=== PATIENT | female | born 1950 | race Hispanic/Latino ===

== ENCOUNTER 2016-08-07 21:19 | Inpatient (IN) | payer MEDICARE, OTHER ==
--- NOTE | 2016-08-07 22:07 | ED PDOC ---
Arrival/HPI - General Chief Complaint: Shortness Of Breath Time Seen by Provider: 08/07/16 21:27 Historian: Patient, EMS - History of Present Illness Narrative History of Present Illness (Text): 08/07/16 21:50 Marcia Healy is a 66 year old female, whose past medical history includes COPD, CAD s/p cardiac catheterization, and NSTEMI, who presents to the emergency department brought in by EMS complaining of shortness of breath. Patient states she has been experiencing shortness of breath with associated productive cough tonight. Patient states she is on home oxygen and had nebulizer treatments at home but denies any relief. Patient denies any fever, chills, chest pain, nausea , vomiting, diarrhea, urinary symptoms, back pain, neck pain, headache, dizziness, or any other complaints. Time/Duration: Other (today) Symptom Onset: Gradual Symptom Course: Unchanged Activities at Onset: Rest, Light Context: Home Past Medical History - Provider Review Nursing Documentation Reviewed: Yes - Infectious Disease Hx of Infectious Diseases: None - Tetanus Immunization Tetanus Immunization: Unknown - Cardiac Hx Cardiac Disorders: Yes Hx Congestive Heart Failure: Yes - Pulmonary Hx Chronic Obstructive Pulmonary Disease (COPD): Yes - Neurological Hx Seizures: Yes (Is on LaMICtal) - HEENT Hx HEENT Disorder: No - Renal Hx Renal Disorder: No - Endocrine/Metabolic Hx Endocrine Disorders: No - Hematological/Oncological Hx Blood Disorders: No - Integumentary Hx Dermatological Disorder: No - Musculoskeletal/Rheumatological Hx Falls: No - Gastrointestinal Hx Gastrointestinal Disorders: No - Genitourinary/Gynecological Hx Reproductive Disorders: No - Psychiatric Hx Depression: Yes Hx Substance Use: No - Past Surgical History Past Surgical History: No Previous - Anesthesia Hx Anesthesia: No Hx Anesthesia Reactions: No Hx Malignant Hyperthermia: No - Suicidal Assessment Feels Threatened In Home Enviroment: No Family/Social History - Physician Review Nursing Documentation Reviewed: Yes Family/Social History: No Known Family HX Smoking Status: Heavy Smoker > 10 Cigarettes Daily Hx Alcohol Use: No Hx Substance Use: No Hx Substance Use Treatment: No Allergies/Home Meds Allergies/Adverse Reactions: Allergies No Known Allergies Allergy (Verified 08/05/14 16:18) Review of Systems - Physician Review All systems were reviewed & negative as marked: Yes - Review of Systems Constitutional: Normal. absent: Fevers Eyes: Normal ENT: Normal Respiratory: SOB, Cough, Sputum Cardiovascular: Normal. absent: Chest Pain Gastrointestinal: Normal. absent: Abdominal Pain, Diarrhea, Nausea, Vomiting Genitourinary Female: Normal. absent: Dysuria, Frequency, Hematuria, Urine Output Changes Musculoskeletal: Normal. absent: Back Pain, Neck Pain Skin: Normal. absent: Rash Neurological: Normal. absent: Headache, Dizziness Endocrine: Normal Hemo/Lymphatic: Normal Psychiatric: Normal Physical Exam Vital Signs Reviewed: Yes Vital Signs Temp Pulse Resp BP Pulse Ox 08/07/16 21:51 18 08/07/16 21:19 99.1 F 100 H 20 143/94 H 100 Temperature: Afebrile Blood Pressure: Normal Pulse: Regular Respiratory Rate: Normal Appearance: Positive for: Well-Appearing, Non-Toxic, Comfortable Pain Distress: None Mental Status: Positive for: Alert and Oriented X 3 - Systems Exam Head: Present: Atraumatic, Normocephalic Pupils: Present: PERRL Extroacular Muscles: Present: EOMI Conjunctiva: Present: Normal Mouth: Present: Moist Mucous Membranes Neck: Present: Normal Range of Motion Respiratory/Chest: Present: Decreased Breath Sounds (Decreased breath sounds bilaterally). No: Respiratory Distress, Accessory Muscle Use Cardiovascular: Present: Regular Rate and Rhythm, Normal S1, S2. No: Murmurs Abdomen: Present: Normal Bowel Sounds. No: Tenderness, Distention, Peritoneal Signs Back: Present: Normal Inspection Upper Extremity: Present: Normal Inspection. No: Cyanosis, Edema Lower Extremity: Present: Erythema (Erythema to left leg). No: Edema Neurological: Present: GCS=15, CN II-XII Intact, Speech Normal Skin: Present: Warm, Dry, Normal Color. No: Rashes Psychiatric: Present: Alert, Oriented x 3, Normal Insight, Normal Concentration Medical Decision Making ED Course and Treatment: 08/07/16 21:50 Impression: 66 year old female complaining of shortness of breath and productive cough today. Differential Diagnosis included but are not limited to: COPD exacerbation vs. pneumonia vs. CHF Plan: -- EKG -- Chest X-ray -- Labs, BNP, cardiac enzymes, blood culture -- Reassess and disposition Prior Visits: Notes and results from previous visits were reviewed. Progress Notes: Reviewed EKG, sinus tachycardia at 102 bpm. LAD. Incomplete RBBB. Non-specific T wave changes inferolaterally. 08/07/16 22:57 Reviewed radiology, Chest X-ray shows increased interstitial markings. 08/07/16 23:[address] House, who is aware and agrees with plan. Accepts pt in to his service. Pt will be admitted to Telemetry for COPD exacerbation. Pt is no acute distress. Discussed results and hospital admission with pt, who is aware and verbalizes understanding. - Lab Interpretations Lab Results: 08/07/16 21:47 08/07/16 21:47 Lab Results 08/07/16 21:47: WBC 7.7, RBC 5.44, Hgb 16.3 H, Hct 51.2 H, MCV 94.1, MCH 30.0, MCHC 31.8, RDW 18.7 H, Plt Count 325, MPV 9.5, PT 12.0 H, INR 1.11 H, APTT 26.3 , Sodium 139, Potassium 4.4, Chloride 97 L, Carbon Dioxide 37 H, Anion Gap 9 L, BUN 34 H, Creatinine 0.7, Est GFR ( Amer) > 60, Est GFR (Non-Af Amer) > 60, Random Glucose 115 H, Calcium 8.2 L, Total Bilirubin 0.8, AST 30, ALT 38, Alkaline Phosphatase 117, Lactate Dehydrogenase 572, Total Creatine Kinase 86, Troponin I < 0.01 D, NT-Pro-B Natriuret Pep 6850 H, Total Protein 6.8, Albumin 3.3, Globulin 3.5, Albumin/Globulin Ratio 0.9 L I have reviewed the lab results: Yes - RAD Interpretation Radiology Orders: 08/07/16 21:51 CHEST PORTABLE [RAD] Stat [employer] Saw Operator: ED Physician - EKG Interpretation Interpreted by ED Physician: Yes Type: 12 lead EKG - Medication Orders Current Medication Orders: Azithromycin (Zithromax 500mg In Ns) 250 mls @ 166.667 mls/hr IV STAT STA PRN Reason: Protocol Stop: 08/08/16 00:30 Ceftriaxone Sodium (Rocephin 1 Gram Ivpb) 100 mls @ 200 mls/hr IV ONCE STA PRN Reason: Protocol Stop: 08/07/16 23:30 Discontinued Medications Albuterol/Ipratropium (Duoneb 3 Mg/0.5 Mg (3 Ml) Ud) 3 ml IH ONCE STA Stop: 08/07/16 23:01 Methylprednisolone (Solu-Medrol) 125 mg IVP STAT STA Stop: 08/07/16 22:06 Last Admin: 08/07/16 22:06 Dose: 125 MG IVP Administration Document 08/07/16 22:06 DALLIN (Rec: 08/07/16 22:06 DALLIN [id number]) Charges for Administration # of IVP Administrations 1 - Scribe Statement The provider has reviewed the documentation as recorded by the Lamar Felix Provider Attestation: All medical record entries made by the Johnibcristi were at my direction and personally dictated by me. I have reviewed the chart and agree that the record accurately reflects my personal performance of the history, physical exam, medical decision making, and the department course for this patient. I have also personally directed, reviewed, and agree with the discharge instructions and disposition. Disposition/Present on Arrival - Present on Arrival Any Indicators Present on Arrival: No History of DVT/PE: No History of Uncontrolled Diabetes: No Urinary Catheter: No History of Decub. Ulcer: No History Surgical Site Infection Following: None - Disposition Have Diagnosis and Disposition been Completed?: Yes Diagnosis: Acute exacerbation of chronic obstructive pulmonary disease (COPD) Disposition: HOSPITALIZED Disposition Time: 23:18 Condition: GOOD
[2016-08-07 22:09] LABS: HEMATOCRIT 51.2 % (36.0-48.0); MEAN CELL VOLUME 94.1 fL (80.0-105.0); MEAN CORPUSCULAR HGB CONC 31.8 g/dl (31.0-37.0); MEAN PLATELET VOLUME 9.5 fl (7.0-11.0); RED CELL DISTRIBUTION WIDTH 18.7 % (11.5-14.5); WHITE BLOOD COUNT 7.7 10^3/ul (4.5-11.0)
[2016-08-07 22:22] LABS: ALB/GLOB RATIO 0.9 (1.1-1.8); ALKALINE PHOSPHATASE 117 U/L (38-133); ALT/SGPT 38 U/L (7-56); AST/SGOT 30 U/L (15-39); BILIRUBIN,TOTAL 0.8 mg/dL (0.2-1.3); BLOOD UREA NITROGEN 34 mg/dL (7-21); CALCIUM 8.2 mg/dL (8.4-10.5); CARBON DIOXIDE 37 mmol/L (21-33); CHLORIDE 97 mmol/L (98-107); GFR AFRICAN-AMERICAN > 60; GLUCOSE,RANDOM 115 mg/dL (70-110); INR 1.11 (0.93-1.08); PARTIAL THROMBOPLASTIN TIME 26.3 Seconds (23.7-30.8); POTASSIUM 4.4 mmol/L (3.6-5.0); SODIUM 139 mmol/L (132-148); TOTAL PROTEIN 6.8 g/dL (5.8-8.3)
[2016-08-07 22:34] LABS: TROPONIN I < 0.01 ng/mL
[2016-08-07] MEDS ORDERED: Albuterol-Ipratrop 3 mg / 0.5 (3 ml) UD IH STA (23:00)
[2016-08-07] MEDS ORDERED: cefTRIAXone 1 gm 100 ML IV STA (23:01)
[2016-08-07] MEDS ORDERED: Azithromycin 500MG/NS 250ml 250 ML IV STA (23:01)
--- NOTE | 2016-08-08 00:49 | CP.PCM.PN ---
Subjective - Date & Time of Evaluation Date of Evaluation: 08/08/16 Time of Evaluation: 00:41 - Subjective Subjective: Patient was seen for lethargy. States that she in in [facility] and this is August. Has no complaints. Medical record was reviewed. 66 year old white woman was admitted for sob, exacerbation of COPD. Has PMH of CAD, NSTEMI, CHF, COPD,seizure, HLD, polycythemiak ,depression. Obtained blood for ABG from right inguinal region. Objective - Vital Signs/Intake and Output Vital Signs (last 24 hours): Temp Pulse Resp BP Pulse Ox 99.1 F 100 H 18 151/97 H 99 08/07/16 21:19 08/07/16 23:53 08/07/16 23:53 08/07/16 23:53 08/07/16 23:53 130/97,97, 98.8 *F FSBS 154 mg%. - Labs Labs: PT 12.0 Seconds (9.9-11.8) H 08/07/16 21:47 INR 1.11 (0.93-1.08) H 08/07/16 21:47 APTT 26.3 Seconds (23.7-30.8) 08/07/16 21:47 - Constitutional Appears: No Acute Distress - Head Exam Head Exam: ATRAUMATIC, NORMAL INSPECTION, NORMOCEPHALIC - Eye Exam Eye Exam: Normal appearance Additional comments: Reactive light. - ENT Exam ENT Exam: Normal External Ear Exam - Neck Exam Neck Exam: Normal Inspection. absent: Thyromegaly - Respiratory Exam Respiratory Exam: Wheezes (+), NORMAL BREATHING PATTERN - Cardiovascular Exam Cardiovascular Exam: REGULAR RHYTHM, +S1 (Normal.), +S2 (Normal.). absent: JVD - GI/Abdominal Exam GI & Abdominal Exam: absent: Distended - Rectal Exam Rectal Exam: Deferred - Extremities Exam Extremities Exam: Normal Inspection - Back Exam Back Exam: NORMAL INSPECTION - Neurological Exam Neurological Exam: Altered (Lethargic.) Neuro motor strength exam: Left Upper Extremity: 3, Right Upper Extremity: 3, Left Lower Extremity: 3, Right Lower Extremity: 3 - Psychiatric Exam Psychiatric exam: Normal Mood - Skin Skin Exam: Normal Color Assessment and Plan - Assessment and Plan (Free Text) Assessment: A/P:Lethargy. Exacerbation of COPD. R/O hypercarbia. CHF.-->hypoxia. CAD. Seizure ,Post ictal? ABG stat. Lasix 80 mg iV stat. FSBS-154 mg% 1 st ABG-Venous? It was repeated. Repeat ABG shows respiratory acidosis with hypoxia. Will place patient on BiPAP and repeat ABG. Placed a through to 's service. 06:18 ABG was noted .BiPAP setting changed.
[2016-08-08 01:09] VITALS: BMI 25.7
[2016-08-08 01:34] LABS: ARTERIAL BLOOD GAS HCO3 30.2 mmol/L (21-28)
[2016-08-08 01:42] LABS: ARTERIAL BLOOD GAS PH 7.19 (7.35-7.45)
[2016-08-08 04:54] LABS: ARTERIAL BLOOD GAS HCO3 35.4 mmol/L (21-28); ARTERIAL BLOOD GAS O2 CAPACITY 19.4 mL/dl (16-24); ARTERIAL BLOOD GAS O2 CONTENT 19.2 ML/dl (15-23); ARTERIAL BLOOD GAS PH 7.27 (7.35-7.45); CARBOXYHEMOGLOBIN 14.7 % (0.5-1.5); HHB 0.8 % (0-5); METHEMOGLOBIN 0.5 % (0.0-3.0)
--- NOTE | 2016-08-08 09:36 | HP ---
CHIEF COMPLAINT AND HISTORY OF PRESENT ILLNESS: This is a 66-year-old female who came in to see me y day because of having lower extremity swelling. The patient states that her lower extremity swe lling has progressively increased. She also was complaining of worsening shortness of breath with ex ertion. The patient was advised to go to the Emergency Room. She had a friend who was going to [place]. She says this fiend also is picking her up, and so EMS was not called for transfer. She was comfortable, not in any distress. She has delayed coming into the hospital. She has complaints of s hortness of breath. Overnight she was lethargic, she was hypoxic. She was placed on oxygen. She was given IV Lasix. Emily colin has been placed on BiPAP. She had not complained of any chest pain. She denies any nausea or vomi ting. No dysuria or frequency. Mostly it is her lower extremity edema that she complains about. Emily colin has no headaches. She denies any weakness in the arms or the legs. She does have difficulty ambul ating, and this has also been an issue for her recently. The patient has been brought by EMS franklyn lee of shortness of breath. She has been using her nebulizers, with not much help. ALLERGIES: No known drug allergies. HOME MEDICATIONS: She is on oxycodone, aspirin, Lipitor. PAST MEDICAL HISTORY: 1. Coronary artery disease. 2. COPD. 3. Seizure disorder. 4. Depression. SOCIAL HISTORY: She has been a smoker, and smokes 10 cigarettes a day. She denies substance abuse. FAMILY HISTORY: Noncontributory. Temperature is 98, pulse 97. The blood pressure is 136/97, O2 saturation 99%. Height is 5 feet 2 in ches, weight is 141 pounds, BMI is 25.8. GENERAL: Patient lying in bed, flat, and in no apparent distress. HEAD AND NECK EXAM: Atraumatic, normocephalic. Conjunctivae are pink. Throat clear and mouth with moist mucosa. Oropharynx benign. EYES: Extraocular movements are intact. PERRLA. NECK: Supple. No JVD, thyromegaly, or adenopathy. No bruits. HEART: S1 and S2 regular rate and rhythm. No murmurs, rubs, or gallops. LUNGS: Good bilateral air entry. There is rhonchi bilaterally. No wheezing or rales. ABDOMEN: Soft, nontender, nondistended. Bowel sounds are positive in all quadrants. No rebound. No hepatosplenomegaly. EXTREMITIES: In the lower extremities there is 2+ edema going up to the knees. NEURO: No facial asymmetry, tongue is midline, no uvula deviation. Power is 5/5 in upper extremity and 5/5 in lower extremity. Sensation is normal in upper extremity and lower extremity. PSYCH: Awake, alert, oriented x3. No anxiety or depression symptoms. Good insight. Normal affec t. : No CVA tenderness VASCULAR: 2+ pulses in carotid and pedal pulses. SKIN: No erythema or abnormal nodules noted. SPINE: Normal curvature. LYMPHADENOPATHY: No anterior cervical or posterior cervical adenopathy. No inguinal adenopathy. LABORATORIES: She has a white count of 7.7, hemoglobin 16.3, platelet count is 325. INR is 1.1. Emily colin has an ABG that shows a pH of 7.19 with a pCO2 of 79. She had a bicarbonate of 37 with an anion ga p of 9. She had a sodium 139. AST, ALT is 30 and 38. Albumin is 33.3 EKG shows sinus tachycardia at 102. There are nonspecific ST changes, left axis deviation. Chest x- ray shows possibly some bilateral pulmonary congestion. ProBNP 6850 and troponin 0.01. ASSESSMENT: 1. Acute congestive heart failure secondary to systolic dysfunction with an ejection fraction of 45-5 0%. 2. Moderate right ventricular dilation. 3. Tricuspid regurgitation. 4. Lower extremity edema. 5. Polycythemia. 6. Nonobstructive coronary artery disease. 7. Anxiety. 8. Dyslipidemia. PLAN: The patient is going to be admitted to the hospital. I will give her IV diuretic therapy. Emily colin received steroids in the Emergency Room. She is going to be placed on nebulizer treatments. She i s getting Lasix. She was given Rocephin and Zithromax antibiotics. I do not see any signs of infect ion. I will get pulmonary and cardiology evaluation as well. Will need to repeat her blood work. Overall prognosis is guarded. She will also need physical therapy. I will also order a urine tox. Mariusz House MD cc: [id number] TT: 08/08/2016 09:36:02 jn
[2016-08-08] MEDS ORDERED: MethylPREDNISolone 40 mg Vial IVP SCH (10:00)
[2016-08-08] MEDS: Albuterol-Ipratrop 3 mg / 0.5 (3 ml) UD IH SCH ×3 (10:20→19:32)
--- NOTE | 2016-08-08 11:01 | RAD ---
HISTORY: Shortness of breath. COMPARISON: 04/21/2016. FINDINGS: LUNGS: No discrete infiltrates. PLEURA: No significant pleural effusion identified, no pneumothorax apparent. CARDIOVASCULAR: Cardiomegaly, stable pulmonary vascular congestion. OSSEOUS STRUCTURES: No significant abnormalities. VISUALIZED UPPER ABDOMEN: Normal. OTHER FINDINGS: None. IMPRESSION: Cardiomegaly/ stable CHF.
[2016-08-08 12:43] LABS: URINE BILIRUBIN NEGATIVE (NEGATIVE); URINE BLOOD TRACE-INTACT (NEGATIVE); URINE GLUCOSE (UA) NEGATIVE (NEGATIVE); URINE KETONE NEGATIVE (NEGATIVE); URINE LEUKOCYTE ESTERASE SMALL Leu/uL (NEGATIVE); URINE PROTEIN NEGATIVE mg/dL (<30 mg/dL); URINE UROBILINOGEN 0.2 E.U./dL (<1 E.U./dL)
[2016-08-08 12:47] LABS: URINE APPEARANCE CLEAR (CLEAR); URINE COLOR YELLOW (YELLOW)
[2016-08-08 13:14] LABS: URINE RBC 0 - 2 /hpf (0-2)
--- NOTE | 2016-08-08 18:05 | CARD ---
APPROVED REPORT EKG Measurement Heart [id number] <Conclusion> Sinus tachycardia Left axis deviation Pulmonary disease pattern Incomplete right bundle branch block T wave abnormality, consider inferolateral ischemia Abnormal ECG
--- NOTE | 2016-08-08 22:19 | CON ---
DATE: 08/08/2016 REFERRING PHYSICIAN: Dr. Mariusz House. REASON FOR CONSULT: Cough, shortness of breath, history of chronic obstructive lung disease. HISTORY OF PRESENT ILLNESS: This is a 66-year-old female with known history of chronic obstructive l modesta disease, coronary artery disease, cardiomyopathy, seizure disorder, depression, who had been acti vely smoking since last week. Presented into Emergency Room with shortness of breath, cough, leg swe lling, respiratory failure requiring noninvasive ventilation. Still having shortness of breath, coug h. No hemoptysis, no hematemesis. No hematuria, no diarrhea reported. PAST MEDICAL HISTORY: Chronic obstructive lung disease, coronary artery disease, seizure disorder, d epression. ALLERGIES: None known. SOCIAL HISTORY: Active smoking. Denied any alcohol use. FAMILY HISTORY: No significant cardiopulmonary disease reported. MEDICATIONS: She is on Coreg 3.125 mg twice a day, DuoNeb q. 6 hours, Lasix 40 mg twice a day, Solu- Medrol 40 mg q. 12 hours, Zestril 2.5 mg daily. REVIEW OF SYSTEMS: No headache. Has rhinitis, facial discomfort, cough, shortness of breath, discol ored sputum production. No nausea, no vomiting, no abdominal pain. No dysuria. Did have leg swelli ng. PHYSICAL EXAMINATION: Lying in the bed, [id number] distress secondary to cough and shortness of breath. Temp is 99, heart rate 96, respiratory rate is 20, blood pressure 105/67, pulse ox 95% on BiPAP with 40% oxygen. HENT: Moist mucous membrane. Crowded airway. Bilateral maxillary tenderness. NECK: Supple, no JVD. LUNGS: Has bilateral expiratory wheezing, few basilar crackles. HEART: S1 and S2. ABDOMEN: Soft, nontender, no organomegaly. EXTREMITIES: There is no edema. NEUROLOGICALLY: Awake, alert. Follows simple commands. LABORATORY DATA: Shows hemoglobin 16.3, hematocrit 51.2, WBC 7.7, platelet is 325. INR 1.11, PTT 26 . ABG shows pH 7.27, pCO2 of 77, O2 was 104 this morning. Sodium 139, potassium 4.4, chloride 97, b icarbonate 37, BUN 34, creatinine 0.7, glucose 154, calcium 8.2. AST 30, ALT 38. Alk phos is 107, L DH 572. Troponin is 0.01. ProBNP 6,850, albumin is 3.3. Chest x-ray done today shows cardiomegaly; also shows some congestion. Had CAT scan done last year w [facility] showed bilateral effusion; otherwise was unremarkable. Also had a cardiac cath done last year w [facility] shows LV ejection fraction of 55% with known obstructive coronary artery disease. Echocardiogra m in 02/2016 shows right ventricular systolic pressure is 29, LV ejection fraction was 45-50%. IMPRESSION AND PLAN: Exacerbation of chronic obstructive lung disease. There may be component of si nusitis. According to echo, left ventricular function 45-50%. There may be component of sleep apnea syndrome. Seizure disorder. I agree with Dr. House with the present management. I will suggest adding doxycycline 100 mg twic e a day, add with Pulmicort and Mucomyst q. 12 hours, Singulair 10 mg daily, Daliresp 500 mcg d aily. Gastric prophylaxis. DVT prophylaxis. Will place the patient on Nicoderm patch. Continue Bi PAP while sleeping, and if short of breath. Follow up labs in the morning. Thank you, and will follow with you. Emeka Acuna MD cc: [id number] TT: 08/08/2016 22:19:16 Confirmation # [id number] Dictation # [id number] carmela
[2016-08-08] MEDS: Hemorrohoidal Ointment (2 oz) TOP SCH (23:27)
[2016-08-08] MEDS: MethylPREDNISolone 40 mg Vial IVP SCH (23:27)
--- NOTE | 2016-08-09 00:28 | CON ---
DATE: 08/08/2016 REQUESTING PHYSICIAN: Dr. Mariusz House. REASON FOR CONSULTATION: Polycythemia, shortness of breath. HISTORY OF PRESENT ILLNESS: The patient is a 66-year-old female who presented to the ED with shortne ss, lethargy. She also had productive cough. She has chronic obstructive pulmonary disease with a h istory of heavy smoking. She had multiple admissions related to this. She was also found to have po lycythemia during last hospitalization. Injected mutation was negative. Hemoglobin and hematocrit du ring this admission is elevated to 16.3 and 51.2. She also has history of congestive heart failure w ith acute exacerbation now. She also developed swelling of the lower extremity for the past few days . She required phlebotomy 1 unit during last hospitalization due to elevated hemoglobin and hematocr it. She also has a history of seizure disorder. No recent seizures noted. Also has history of depr ession. No history of substance abuse. Urine tox was negative. Shortness of breath has improved si nce admission to the hospital. Denies any chest pain. PAST MEDICAL HISTORY: COPD, CHF, seizure disorder, depression. PAST SURGICAL HISTORY: None. FAMILY HISTORY: No positive history in mother and father. PERSONAL HISTORY: Heavy smoker, smokes more than 10 cigarettes a day. No history of alcohol abuse. ALLERGIES: No known drug allergies. REVIEW OF SYSTEMS: As per HPI. Rest of 12-point review of systems reviewed and negative. PHYSICAL EXAMINATION: GENERAL: Comfortable in bed, in no acute distress. VITAL SIGNS: Temperature 99.1, heart rate is 100 per minute, respiratory rate 20 per minute, blood p ressure 140/90, pulse ox is 100% on oxygen by nasal cannula. HEENT: Normal. CARDIOVASCULAR: Tachycardia present. S1, S2 normal. No murmur, no gallop. RESPIRATORY: Air entry present, equal bilateral. Occasional crepitations at bases. Occasional rhon chi. SKIN: Normal. No rash. EXTREMITIES: No edema. LYMPHADENOPATHY: None. NEUROLOGIC: Awake, alert, oriented. No focal sensory or motor deficit. LABORATORY DATA: White count 7.7, hemoglobin 16.3, hematocrit 51.2, platelet count 325. Sodium 139, potassium 4.4, BUN 34, creatinine 0.7, glucose 115. INR 1.1, PT 12, PTT 26. glucose 115, calcium 8 .2. BNP 6800. Chest x-ray: No infiltrate, cardiomegaly. ASSESSMENT: 1. Chronic obstructive pulmonary disease, acute exacerbation. 2. Congestive heart failure. 3. Polycythemia - secondary. 4. Seizure disorder. 5. Depression. 6. Tricuspid regurgitation. PLAN: 1. Polycythemia. Hemoglobin and hematocrit elevated to 16.3 and hematocrit 51.2. We will repeat the CBC with a.m. labs tomorrow, elevated hemoglobin and hematocrit can give rise to symptoms of dizzines s and drowsiness. If she is still symptomatic, we will consider 1 unit of phlebotomy if hematocrit i s still elevated more than 50. She has secondary polycythemia secondary to smoking and COPD, hypoxia . JAK2 mutation has been negative. 2. Pulmonary: She is currently on oxygen by nasal cannula, bronchodilators and antibiotic with doxyc ycline. She is also on Solu-Medrol. 3. Renal: BUN, creatinine normal. 4. Neurology: No focal sensory or motor deficit. Alert, oriented. 5. Seizure disorder, none recent. Thank you, Dr. House, for allowing us to participate in the patient's care. We will continue to david miller. Kacey Tirado MD cc: [id number] TT: 08/09/2016 00:28:01 Confirmation # [id number] Dictation # [id number] carmela
--- NOTE | 2016-08-09 03:36 | CP.PCM.PN ---
Subjective - Date & Time of Evaluation Date of Evaluation: 08/09/16 Time of Evaluation: 03:32 (Seen earlier.) - Subjective Subjective: S:Patient was seen at bedside. Complained of pain in rectal area, requested hemorrhoid cream. States that she has hemorrhoids for many years, began after she delivered son. Has no other complaints now. Pertinent medical record was reviewed. O: Last Vital Signs 3 Temp 98.3 F 08/09/16 00:01 Pulse 92 H 08/09/16 02:00 Resp 16 08/09/16 00:01 BP 103/67 08/09/16 00:01 Pulse Ox 95 08/08/16 08:00 Awake, alert, not in distress. LUNGS: Normal breathing pattern. ABD:No distension. A:History of hemorrhoid. P:Prep H as ordered. Objective - Vital Signs/Intake and Output Vital Signs (last 24 hours): Temp Pulse Resp BP Pulse Ox 98.3 F 92 H 16 103/67 95 08/09/16 00:01 08/09/16 02:00 08/09/16 00:01 08/09/16 00:01 08/08/16 08:00 Intake and Output: 08/08/16 08/09/16 18:59 06:59 Output Total 850 Balance -850 - Medications Medications: Current Medications Albuterol/Ipratropium (Duoneb 3 Mg/0.5 Mg (3 Ml) Ud) 3 ml IH TIDRESP PRN PRN Reason: Shortness of Breath Arformoterol Tartrate (Brovana) 15 mcg IH [id number] [facility] Budesonide (Pulmicort Respules) 0.5 mg IH [id number] [facility] Carvedilol (Coreg) 3.125 mg PO BID [facility] Last Admin: 08/08/16 17:58 Dose: 3.125 mg Doxycycline Hyclate (Doryx) 100 mg PO Q12 [facility] PRN Reason: Protocol Last Admin: 08/08/16 23:29 Dose: 100 mg Furosemide (Lasix) 40 mg IVP BID [facility] Last Admin: 08/08/16 17:59 Dose: 40 mg Lisinopril (Zestril) 2.5 mg PO DAILY [facility] Methylprednisolone (Solu-Medrol) 40 mg IVP Q8 [facility] Last Admin: 08/08/16 23:27 Dose: 40 mg Montelukast Sodium (Singulair) 10 mg PO HS [facility] Last Admin: 08/08/16 23:27 Dose: 10 mg Multi-Ingredient Ointment (Prep-Hem) 1 ea TOP BID [facility] Last Admin: 08/08/16 23:27 Dose: 1 applic Roflumilast (Daliresp) 500 mcg PO DAILY [facility] - Labs Labs: PT 12.0 Seconds (9.9-11.8) H 08/07/16 21:47 INR 1.11 (0.93-1.08) H 08/07/16 21:47 APTT 26.3 Seconds (23.7-30.8) 08/07/16 21:47
[2016-08-09] MEDS: MethylPREDNISolone 40 mg Vial IVP SCH ×3 (06:51→22:36)
--- NOTE | 2016-08-09 07:27 | CON ---
DATE: 08/08/2016 SERVICE: Cardiology. REASON FOR CONSULTATION: Cardiac evaluation, admitted with shortness of breath, possible acute exace rbation of chronic obstructive pulmonary disease, status post cardiac catheterization, nonobstructive coronary artery disease, hypertension. BRIEF CLINICAL HISTORY: A 66-year-old female with a past medical history significant for COPD, admit fabby with acute exacerbation of chronic obstructive pulmonary disease, history of cardiac catheterizat ion, nonobstructive coronary artery disease ____ 10/20/2015. The patient says that she has swelling o f the lower extremity as well as progressive increasing shortness of breath. The patient was advised to go to the Emergency Room by PMD. A friend drove and admitted here. The patient overnight was le thargic, hypoxic, placed and oxygen, was given IV Lasix. Now placed on BiPAP. Denies any chest pain , shortness of breath, any palpitation. PAST MEDICAL HISTORY: Significant for COPD, pulmonary hypertension, depression, anxiety disorder, re spiratory tract infection. Previous cardiac workup as follows: The patient had a stress test on 08/10/2014 that shows probably abn ormal SPECT myocardial perfusion study, partially reversible anteroseptal defect suspicious for ische markell dated 08/10/2014. Following this, patient underwent cardiac catheterization dated 08/12/2014 that s hows essentially nonobstructive coronary artery disease, limited to diagonal 1, 50%-55% stenosis, von rpin turn, small caliber vessels, preserved ____ ejection fraction ____ EDP was 12, essentially carol l LAD, circumflex, and right coronary artery, dated 08/12/2014. The patient had repeat catheterizatio n on 02/19/2016, at that time showed nonobstructive coronary artery disease, limited to OM1 55%, smal l caliber vessel, preserved ____ ejection fraction ____%, EDP was in the range of 12. The patient vaughn d echocardiography done on 02/17/2016 that showed ejection fraction 45%-50%, right ventricle is moder ate to severely dilated, systolic function of RV is moderately reduced, RV systolic pressure 29. No pericardial effusion, no vegetation. SOCIAL HISTORY: Has been a smoker, now cut down to 10 cigarettes a day. Denies any substance abuse. FAMILY HISTORY: Noncontributory. CURRENT MEDICATIONS: The patient is taking prednisone, Lamictal, dextromethorphan, Robitussin, Zolof t, BuSpar, Lovenox, Pepcid, and multiple nebulizers. ALLERGIES: No known drug allergies. REVIEW OF SYSTEMS: As per HPI. PHYSICAL EXAMINATION: VITAL SIGNS: Temperature afebrile, heart rate 87, blood pressure 112/77. HEENT: PERRLA. Extraocular muscles intact. NECK: Supple. No carotid bruits. No thyromegaly. CHEST: Clear to auscultation. HEART: S1, S2 regular. ABDOMEN: Soft. EXTREMITIES: Clubbing and cyanosis negative. LABORATORY DATA: Blood workup as follows: WBC ____, hemoglobin ____, hematocrit 51.2, platelet coun t 325. Chemistry shows sodium ____, potassium 4.0, chloride 97, carbon dioxide 37, anion gap of 9, B UN ____, creatinine 0.7. BNP 6850. Troponin 0.01 x 2 negative. 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 Prior to that, patient had cardiac catheterization and nonobstructive coronary artery disease. Echo shows ejection fraction 45% dated 02/17/20 16, acute exacerbation of chronic obstructive pulmonary disease, hypertension, hyperlipidemia, dilate d right ventricle, right ventricular dysfunction, obstructive sleep apnea possibly, as well as chroni c obstructive pulmonary disease. Aggressive treatment of chronic obstructive pulmonary disease. RECOMMENDATION: Continue diuretics. Monitor electrolytes. We will follow with you. Thank you, Dr. House, for providing the opportunity in taking care of the patient. We will follow with you. Continue DVT prophylaxis. Emeka Alfaro MD cc: [id number] TT: 08/08/2016 19:43:45 Confirmation # [id number] Dictation # [id number] puneet
[2016-08-09 07:31] LABS: HEMATOCRIT 50.1 % (36.0-48.0); MEAN CELL VOLUME 95.2 fL (80.0-105.0); MEAN CORPUSCULAR HEMOGLOBIN 29.1 pg (25.0-35.0); MEAN CORPUSCULAR HGB CONC 30.5 g/dl (31.0-37.0); MEAN PLATELET VOLUME 9.6 fl (7.0-11.0); RED CELL DISTRIBUTION WIDTH 18.3 % (11.5-14.5); WHITE BLOOD COUNT 8.7 10^3/ul (4.5-11.0)
[2016-08-09 07:47] LABS: ALB/GLOB RATIO 0.9 (1.1-1.8); ALKALINE PHOSPHATASE 99 U/L (38-133); ALT/SGPT 47 U/L (7-56); AST/SGOT 28 U/L (15-39); BILIRUBIN,TOTAL 0.8 mg/dL (0.2-1.3); BLOOD UREA NITROGEN 32 mg/dL (7-21); CALCIUM 8.4 mg/dL (8.4-10.5); CHLORIDE 91 mmol/L (98-107); CHOLESTEROL 134 mg/dL (130-200); GFR AFRICAN-AMERICAN > 60; GLUCOSE,RANDOM 115 mg/dL (70-110); MAGNESIUM 2.1 mg/dL (1.7-2.2); PHOSPHOROUS 3.6 mg/dL (2.5-4.5); POTASSIUM 4.4 mmol/L (3.6-5.0); SODIUM 139 mmol/L (132-148)
[2016-08-09 08:00] LABS: CARBON DIOXIDE 43 mmol/L (21-33)
[2016-08-09] MEDS: Budesonide 0.5 mg/2 ml Inhal Susp UD IH SCH ×2 (08:03→21:00)
[2016-08-09] MEDS: Arformoterol 15 mcg/2 ml Inh Sol IH SCH ×2 (08:03→21:00)
--- NOTE | 2016-08-09 09:00 | PN ---
DATE: 08/09/2016 The patient has no complaints of any chest pain or shortness of breath. She says her breathing is be tter. Temperature is 98.3, pulse of 92, blood pressure is 103/67, respirations 16. PHYSICAL EXAMINATION: GENERAL: The patient comfortable, in no acute distress. HEENT: Anicteric sclerae. Moist mucosa. NECK: No JVD or adenopathy. CARDIAC: S1/S2. No murmurs. No rubs. Regular. RESPIRATORY: Clear to auscultation bilaterally. No wheezes, rales, or rhonchi. Good air entry. ABDOMEN: Bowel sounds are positive, soft, nontender, and nondistended. EXTREMITIES: Lower extremity 1+ edema. Has 1+ pulses. 1. Acute congestive heart failure secondary to systolic dysfunction with an EF of 45-50%. 2. Acute chronic obstructive pulmonary disease. 3. Tricuspid regurgitation. 4. Lower extremity edema, improving. 5. Polycythemia. 6. Nonobstructive coronary artery disease. 7. Chronic back pain. 8. Anxiety. 9. Dyslipidemia. 10. Hemorrhoids. PLAN: The patient is currently comfortable. The patient is on carvedilol. She is on doxycycline by Dr. Acuna. The patient is on nebulizer treatments. She is receiving Lasix twice a day. He has be en given hemorrhoidal cream. She is on steroids with methylprednisolone. She is on lisinopril for h ypertension. She is about to be coming off of telemetry. The patient also had physical therapy eval uation done. Because the patient was on BiPAP was not fully executed. Will await further inpu t from physical therapy regarding the patient's ability to ambulate. Mariusz House MD cc: [id number] TT: 08/09/2016 08:59:48 Confirmation # [id number] Dictation # [id number] carmela
[2016-08-09] MEDS: Hemorrohoidal Ointment (2 oz) TOP SCH ×2 (09:58→18:40)
[2016-08-09] MEDS: guaiFENesin DM 200 mg-20 mg/10 ml UD PO SCH ×3 (09:58→18:39)
--- NOTE | 2016-08-09 10:05 | PN ---
DATE: 08/09/2016 REASON FOR CONSULTATION AND FOLLOWUP: Cardiac evaluation, shortness of breath, possible acute exacer bation of COPD, status post cardiac catheterization, nonobstructive coronary artery disease, hyperten gi. 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 Denies any aneesh st pain. Complained of shortness of breath. PHYSICAL EXAMINATION: VITAL SIGNS: Temperature afebrile, heart rate 82, blood pressure 103/67. HEENT: PERRLA. Extraocular muscles intact. NECK: Supple. No carotid bruits. No thyromegaly. CHEST: Clear to auscultation. HEART: S1, S2 regular. ABDOMEN: Soft. EXTREMITIES: Clubbing and cyanosis negative. LABORATORY DATA: Blood workup as follows: WBC 8.7, hemoglobin 15.3, hematocrit 50.1, platelet count 252. Chemistry shows sodium 130, potassium 4.0, chloride 91, carbon dioxide 43, anion gap of 9, BUN 32, creatinine 0.7. BNP 3880. IMPRESSION: Acute exacerbation of chronic obstructive pulmonary disease, hypertension, fluid overloa d, congestive heart failure, status post cardiac catheterization 10/19/____, nonobstructive coronary artery disease. End-diastolic pressure was in the range of 12. Ejection fraction preserved. The harpreet vasques had echocardiography 02/17/2016 that shows ejection fraction 45-50%, right ventricle moderate t o severe dilated, right ventricle is moderately dilated, function of right ventricle is reduced, righ t ventricular systolic pressure 29. RECOMMENDATION: Continue aggressive treatment for COPD. Continue diuretics. Monitor electrolytes. We will discontinue telemetry. Thank you, Dr. House, for providing us the opportunity in taking care of the patient. We will dis continue telemetry. We will follow electrolytes. Further recommendation depending upon the hospital course. We will follow with you. Emeka Alfaro MD cc: [id number] TT: 08/09/2016 10:04:23 Confirmation # [id number] Dictation # [id number] tn
--- NOTE | 2016-08-09 12:02 | US ---
HISTORY: Leg pain and swelling. Evaluate for DVT PHYSICIAN(S): González Khalil MD. TECHNIQUE: Duplex sonography and color-flow Doppler with graded compression were used to evaluate the deep venous systems of both lower extremities. FINDINGS: The visualized deep venous systems of both lower extremities are sonographically normal and compressible. Normal wave forms and augmentation are seen. There is no sonographic evidence for deep venous thrombosis in the visualized segments of both lower extremities. IMPRESSION: No sonographic evidence for deep venous thrombosis in the visualized segments of both lower extremities.
[2016-08-09] MEDS: Albuterol-Ipratrop 3 mg / 0.5 (3 ml) UD IH PRN (13:17)
--- NOTE | 2016-08-09 21:05 | PN ---
DATE: 08/09/2016 REFERRING PHYSICIAN: Dr. Mariusz House. SUBJECTIVE: She is lying in the bed, head at 45 degrees, tolerating noninvasive ventilation well. F eels a little better, still having cough, shortness of breath and wheezing. No nausea, no vomiting o r diarrhea. No leg pain or leg swelling. OBJECTIVE: GENERAL: No acute distress. VITAL SIGNS: Temperature is 98, heart rate 96, respiratory rate is 20, blood pressure 106/60, pulse ox 90% on nasal cannula. HEENT: Moist mucous membranes. Crowded airway. Mallampati score is 4. NECK: Supple. No JVD. LUNGS: Has bilateral expiratory wheezing. HEART: S1, S2. ABDOMEN: Soft, nontender. No organomegaly. EXTREMITIES: There is no edema. NEUROLOGIC: Awake, alert, follows simple command. MEDICATIONS: She is on Brovana 15 mcg inhaled twice a day, Coreg 3.125 mg twice a day, Daliresp 500 mcg daily, doxycycline 100 mg twice a day, DuoNeb q. 8 hours p.r.n., Lasix 40 mg twice a day, Pulmic ort inhaler twice a day, Robitussin-DM 10 mL 3 times a day, Singulair 10 mg daily, Solu-Medrol 40 mg q. 8 hours, Tylenol on a p.r.n. basis, Zestril 2.5 mg daily. LABORATORY DATA: Shows hemoglobin 15.3, hematocrit 50.1, WBC 8.7, and platelet is 262. Sodium 139, potassium 4.4, chloride 91, bicarbonate 43, BUN 32, creatinine 0.7, glucose ____. Hemoglobin A1c 4.8 , phosphorus 3.6, magnesium 2.1, AST 28, ALT 27, alkaline phosphatase is 99. ProBNP 3780. Albumin i s 2.8. TSH 0.58. Microbiology: Blood culture so far there is no growth. He had a venous Doppler of the lower extremities which shows no evidence of DVT thrombosis. IMPRESSION AND PLAN: Exacerbation of chronic obstructive lung disease with component of sinusitis, a lso has cardiomyopathy with decreased left ventricular function, congestive heart failure, seizure di sorder. Pulmonary point of view, she is doing okay. We will continue antibiotics, IV and inhaled br onchodilator. Gastric prophylaxis. DVT prophylaxis. Nicoderm patch. Thank you and will follow with you. Emeka Acuna MD cc: [id number] TT: 08/09/2016 21:04:43 Confirmation # [id number] Dictation # [id number] jn
[2016-08-10] MEDS: MethylPREDNISolone 40 mg Vial IVP SCH ×3 (06:24→22:17)
[2016-08-10] MEDS: Albuterol-Ipratrop 3 mg / 0.5 (3 ml) UD IH PRN ×3 (06:33→20:15)
[2016-08-10] MEDS: Arformoterol 15 mcg/2 ml Inh Sol IH SCH ×2 (07:21→20:15)
[2016-08-10] MEDS: Budesonide 0.5 mg/2 ml Inhal Susp UD IH SCH ×2 (07:22→20:15)
[2016-08-10 07:40] LABS: HEMATOCRIT 53.1 % (36.0-48.0); MEAN CELL VOLUME 92.7 fL (80.0-105.0); MEAN CORPUSCULAR HEMOGLOBIN 28.8 pg (25.0-35.0); MEAN CORPUSCULAR HGB CONC 31.1 g/dl (31.0-37.0); MEAN PLATELET VOLUME 9.3 fl (7.0-11.0); RED CELL DISTRIBUTION WIDTH 17.8 % (11.5-14.5); WHITE BLOOD COUNT 11.4 10^3/ul (4.5-11.0)
[2016-08-10 07:49] LABS: ALB/GLOB RATIO 0.9 (1.1-1.8); ALKALINE PHOSPHATASE 99 U/L (38-133); ALT/SGPT 40 U/L (7-56); AST/SGOT 29 U/L (15-39); BILIRUBIN,TOTAL 0.8 mg/dL (0.2-1.3); BLOOD UREA NITROGEN 32 mg/dL (7-21); CALCIUM 8.7 mg/dL (8.4-10.5); CHLORIDE 92 mmol/L (95-110); GFR AFRICAN-AMERICAN > 60; GLUCOSE,RANDOM 113 mg/dL (70-110); POTASSIUM 4.6 mmol/L (3.6-5.0); SODIUM 138 mmol/L (132-148); TOTAL PROTEIN 6.2 g/dL (5.8-8.3)
[2016-08-10 07:56] LABS: CARBON DIOXIDE 40 mmol/L (21-33)
[2016-08-10] MEDS: guaiFENesin DM 200 mg-20 mg/10 ml UD PO SCH ×3 (11:00→19:00)
[2016-08-10] MEDS: Hemorrohoidal Ointment (2 oz) TOP SCH ×3 (11:00→17:33)
--- NOTE | 2016-08-10 14:21 | PN ---
DATE: 08/10/2016 REASON FOR CONSULTATION AND FOLLOWUP: Cardiac evaluation, shortness of breath, possible acute exacer bation of chronic obstructive pulmonary disease, status post cardiac catheterization, nonobstructive coronary artery disease, hypertension. BRIEF CLINICAL HISTORY: A 66-year-old female with a past medical history significant for COPD, admit fabby with acute exacerbation of COPD, still wheezing, history of cardiac catheterization and found to have nonobstructive coronary artery disease status post cardiac catheterization on 10/20/2015, denies any chest pain, shortness of breath, any palpitation. PHYSICAL EXAMINATION: VITAL SIGNS: Temperature afebrile, heart rate 86, blood pressure 124/78. HEENT: PERRLA. Extraocular muscles intact. NECK: Supple. No carotid bruit or thyromegaly. CHEST: Clear to auscultation. HEART: S1, S2 regular. ABDOMEN: Soft. EXTREMITIES: Clubbing and cyanosis negative. LABORATORY DATA: Blood workup as follows: WBC 11.4, hemoglobin 16.5, hematocrit 53.1, platelet coun t is 264. Chemistry shows sodium 138, potassium ____, chloride 92, carbon dioxide 40, anion gap of 1 1, BUN 32, creatinine 0.6. IMPRESSION: Acute exacerbation of chronic obstructive pulmonary disease, still actively wheezing, hy pertension, fluid overload, status post cardiac catheterization 10/20/2015, nonobstructive coronary ar danitza disease, end-diastolic pressure in the range of 12, ejection fraction shows well preserved. The patient had echocardiography 02/17/2016 that showed ejection fraction 45%-50%, right ventricle moder ate to severely dilated, RV function reduced, ____ systolic pressure 29. RECOMMENDATION: Continue gentle diuretics, will keep a negative fluid balance. Continue ____ COPD, monitor electrolytes. We will follow with you. Thank you, Dr. House, for providing the opportunity in taking care of this patient. Will follow w ith you. CVS status is stable. No further cardiac workup is planned at this time. Emeka Alfaro MD cc: [id number] TT: 08/10/2016 14:20:39 Confirmation # [id number] Dictation # [id number] rn
--- NOTE | 2016-08-10 18:36 | PN ---
DATE: 08/10/2016 REFERRING PHYSICIAN: Dr. Mariusz House. SUBJECTIVE: She is lying in the bed, head at 45 degree, could not use BiPAP last night. Overall, fe els better. Still with cough, shortness of breath and wheezing. No nausea, no vomiting, diarrhea. No leg pain or leg swelling. OBJECTIVE: GENERAL: No acute distress. VITAL SIGNS: Temp is 98, heart rate is 86, respiratory rate is 20, blood pressure 124/78, pulse ox 9 1% on room air. HEENT: Moist mucous membranes. Small oral cavity. Crowded airway. NECK: Supple, no JVD. LUNGS: Has a prolonged expiratory phase with wheezing. HEART: S1 and S2. ABDOMEN: Soft, nontender. No organomegaly. EXTREMITIES: There is no edema. NEUROLOGIC: Awake, alert, follows simple command. MEDICATIONS: She is on Brovana 15 mcg inhaled twice a day, Coreg 3.125 mg twice a day, Daliresp 500 mcg daily, IV fluid D5 at 60 mL per hour, doxycycline 100 mg q. 12 hours, DuoNeb q. 8 hours p.r.n., Lasix 40 mg twice daily, Nicoderm patch daily, Pulmicort inhaled twice a day, Robitussin-DM 10 mL 3 t imes a day, Singulair 10 mg daily, Solu-Medrol 40 mg q. 8 hours, Tylenol on a p.r.n. basis, Zestril 2.5 mg daily. LABORATORY DATA: Shows hemoglobin 16.5, hematocrit 33.1, WBC 11.4, platelet is 264. Sodium 138, pot assium 4.6, chloride 92, bicarb 40, BUN 32, creatinine 0.6, glucose is 113, calcium is 8.7. AST 29, ALT 40, alkaline phosphatase is 99, albumin is 3.0. Microbiology: Blood cultures have been negative . Venous Doppler of lower extremity shows no infiltrate or effusion. IMPRESSION AND PLAN: Exacerbation of chronic obstructive lung disease, may be component of sinusitis , cardiomyopathy with decreased left ventricular dysfunction, congestive heart failure, seizure disor quynh. Pulmonary point of view slowly improving, encourage her to use BiPAP. She has respiratory fail ure requiring noninvasive ventilation, CO2 in the 70s. Gastric prophylaxis, deep venous thrombosis p rophylaxis, out of bed to chair. Follow up labs in the morning. Thank you and will follow with you. Emeka Acuna MD cc: [id number] TT: 08/10/2016 18:36:21 Confirmation # [id number] Dictation # [id number] jn
--- NOTE | 2016-08-10 23:59 | CP.PCM.PN ---
Subjective - Date & Time of Evaluation Date of Evaluation: 08/10/16 Time of Evaluation: 23:56 - Subjective Subjective: S:Requests for a sleeping pill. Seen by bedside. States that she has not been able to sleep for past 4 days.Has been sleeping for 3-4 hours only. No other complaints now. No sob, no CP. Pertinent medical record was reviewed. O: Last Vital Signs 3 Temp 98.5 F 08/10/16 16:24 Pulse 86 08/10/16 17:31 Resp 20 08/10/16 16:24 BP 124/78 08/10/16 17:32 Pulse Ox 91 L 08/10/16 16:24 Awake, alert, not in distress. LUNGS:Normal breathing pattern. NEURO:Speech normal. A:Adjustment insomnia. P:Benadryl 25 mg PO now. Objective - Vital Signs/Intake and Output Vital Signs (last 24 hours): Temp Pulse Resp BP Pulse Ox 98.5 F 86 20 124/78 91 L 08/10/16 16:24 08/10/16 17:31 08/10/16 16:24 08/10/16 17:32 08/10/16 16:24 Intake and Output: 08/10/16 08/11/16 18:59 06:59 Intake Total 520 1020 Balance 520 1020 - Medications Medications: Current Medications Acetaminophen (Tylenol 325mg Tab) 650 mg PO Q4H PRN PRN Reason: Pain, Mild (1-3) Last Admin: 08/09/16 16:22 Dose: 650 mg Albuterol/Ipratropium (Duoneb 3 Mg/0.5 Mg (3 Ml) Ud) 3 ml IH TIDRESP PRN PRN Reason: Shortness of Breath Last Admin: 08/10/16 20:15 Dose: 3 ml Arformoterol Tartrate (Brovana) 15 mcg IH [id number] CONSUELO Last Admin: 08/10/16 20:15 Dose: 15 mcg Budesonide (Pulmicort Respules) 0.5 mg IH [id number] CONSUELO Last Admin: 08/10/16 20:15 Dose: 0.5 mg Carvedilol (Coreg) 3.125 mg PO BID [facility] Last Admin: 08/10/16 17:31 Dose: 3.125 mg Doxycycline Hyclate (Doryx) 100 mg PO Q12 CONSUELO PRN Reason: Protocol Last Admin: 08/10/16 22:16 Dose: 100 mg Furosemide (Lasix) 40 mg IVP BID [facility] Last Admin: 08/10/16 17:32 Dose: 40 mg Guaifenesin/Dextromethorphan (Robitussin Dm) 10 ml PO TID [facility] Last Admin: 08/10/16 14:18 Dose: 10 ml Dextrose (Dextrose 5% In Water 1000 Ml) 1,000 mls @ 60 mls/hr IV .[id number] [facility] Last Admin: 08/10/16 12:16 Dose: 60 mls/hr Lisinopril (Zestril) 2.5 mg PO DAILY [facility] Last Admin: 08/10/16 11:00 Dose: 2.5 mg Methylprednisolone (Solu-Medrol) 40 mg IVP Q8 [facility] Last Admin: 08/10/16 22:17 Dose: 40 mg Montelukast Sodium (Singulair) 10 mg PO HS [facility] Last Admin: 08/10/16 22:16 Dose: 10 mg Multi-Ingredient Ointment (Prep-Hem) 1 ea TOP BID [facility] Last Admin: 08/10/16 17:33 Dose: 1 applic Nicotine (Nicoderm Cq) 1 patch TD DAILY [facility] Last Admin: 08/10/16 11:00 Dose: 1 patch Roflumilast (Daliresp) 500 mcg PO DAILY [facility] Last Admin: 08/10/16 11:00 Dose: 500 mcg - Labs Labs: 08/10/16 07:29 08/10/16 07:29 PT 12.0 Seconds (9.9-11.8) H 08/07/16 21:47 INR 1.11 (0.93-1.08) H 08/07/16 21:47 APTT 26.3 Seconds (23.7-30.8) 08/07/16 21:47
[2016-08-11] MEDS: MethylPREDNISolone 40 mg Vial IVP SCH ×3 (05:47→22:14)
[2016-08-11] MEDS: Albuterol-Ipratrop 3 mg / 0.5 (3 ml) UD IH PRN (07:43)
[2016-08-11] MEDS: Arformoterol 15 mcg/2 ml Inh Sol IH SCH ×2 (07:43→19:52)
[2016-08-11] MEDS: Budesonide 0.5 mg/2 ml Inhal Susp UD IH SCH ×2 (07:43→19:53)
[2016-08-11 07:48] LABS: HEMATOCRIT 52.9 % (36.0-48.0); MEAN CELL VOLUME 92.8 fL (80.0-105.0); MEAN CORPUSCULAR HEMOGLOBIN 28.6 pg (25.0-35.0); MEAN CORPUSCULAR HGB CONC 30.8 g/dl (31.0-37.0); MEAN PLATELET VOLUME 9.2 fl (7.0-11.0); RED CELL DISTRIBUTION WIDTH 17.5 % (11.5-14.5); WHITE BLOOD COUNT 10.1 10^3/ul (4.5-11.0)
[2016-08-11 08:02] LABS: ALKALINE PHOSPHATASE 89 U/L (38-133); ALT/SGPT 38 U/L (7-56); AST/SGOT 17 U/L (15-39); BILIRUBIN,TOTAL 0.8 mg/dL (0.2-1.3); BLOOD UREA NITROGEN 22 mg/dL (7-21); CALCIUM 8.6 mg/dL (8.4-10.5); CHLORIDE 89 mmol/L (95-110); GFR AFRICAN-AMERICAN > 60; GLUCOSE,RANDOM 121 mg/dL (70-110); POTASSIUM 4.2 mmol/L (3.6-5.0); SODIUM 135 mmol/L (132-148); TOTAL PROTEIN 5.9 g/dL (5.8-8.3)
[2016-08-11 08:18] LABS: CARBON DIOXIDE 43 mmol/L (21-33)
[2016-08-11] MEDS: guaiFENesin DM 200 mg-20 mg/10 ml UD PO SCH ×3 (10:01→17:44)
[2016-08-11] MEDS: Hemorrohoidal Ointment (2 oz) TOP SCH ×2 (10:01→17:45)
--- NOTE | 2016-08-11 15:11 | PN ---
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 Denies a ny chest pain, shortness of breath, any palpitation. PHYSICAL EXAMINATION: VITAL SIGNS: Temperature afebrile, heart rate 83, blood pressure 121/80. HEENT: PERRLA. Extraocular muscles intact. NECK: Supple. No carotid bruits. No thyromegaly. CHEST: Clear to auscultation. HEART: S1, S2 regular. ABDOMEN: Soft. EXTREMITIES: Clubbing, cyanosis negative. BLOOD WORKUP: WBC 10. , hemoglobin 16.3, hematocrit 42.9, platelet count 275. Chemistry shows s odium 135, potassium 4.2, chloride , carbon dioxide 43, anion gap of 7, BUN 22, creatinine 0.6. IMPRESSION: Acute exacerbation of chronic obstructive pulmonary disease, still actively wheezing, be tter than before, status post fluid overload, status post cardiac catheterization 10/20/2015, nonobstr uctive coronary artery disease, end-diastolic pressure was in the range of 12, ejection fraction well preserved. Echocardiography 02/16/ shows ejection fraction 45%-50%, right ventricle moderately to severely dilated, right ventricular function reduced, right ventricular systolic pressure 29. RECOMMENDATION: Continue gentle diuretics, keep negative fluid balance. Continue aggressive treatme nt for chronic obstructive pulmonary disease. We will follow with you. Thank you, Dr. House, for providing us the opportunity in taking care of the patient. We will dis continue IV fluid. We will follow with you. Continue Coreg. Decrease the Lasix to once from tomorr ow. We will follow with you. We will repeat the blood workup in the morning. Discontinue IV fluid and can decrease the Lasix to 40 once a day from tomorrow and discontinue IV fluid. Repeat the lab i n the morning. Emeka Alfaro MD cc: [id number] TT: 08/11/2016 14:56:31 Confirmation # [id number] Dictation # [id number]
--- NOTE | 2016-08-11 17:40 | PN ---
DATE: 08/11/2016 REFERRING PHYSICIAN: Dr. Mariusz House. SUBJECTIVE: She is sitting side of the bed. Night was unremarkable. Tolerated BiPAP well. Feels b douglas. Still has a cough, wheezing, short of breath. No nausea, vomiting, diarrhea. No leg pain or leg swelling. OBJECTIVE: GENERAL: No acute distress. VITAL SIGNS: Temperature is 98, heart rate is 110, respiratory rate is 20, blood pressure 140/91. HEENT: Moist mucous membranes. Crowded airway. No thrush. NECK: Supple. No JVD. LUNGS: Have a prolonged expiratory phase with wheezing. HEART: S1, S2. ABDOMEN: Soft, nontender. No organomegaly. EXTREMITIES: There is no edema. NEUROLOGIC: Awake, alert, follows simple commands. MEDICATIONS: She is on Ambien 5 mg at bedtime p.r.n., Brovana 15 mcg inhaled twice a day, Coreg 3.12 5 mg twice a day, Daliresp 500 mcg daily, doxycycline 100 mg twice a day, DuoNeb q. 6 hours, Lasix 40 mg daily, NicoDerm patch daily, Pulmicort inhaled twice a day, Robitussin-DM 10 mL 3 times a day, Si ngulair 10 mg daily, Solu-Medrol 40 mg q. 8 hours, Tylenol on a p.r.n. basis, Zestril 2.5 mg daily. LABORATORY DATA: Shows hemoglobin 16.3, hematocrit 52.9, WBC 10.1, platelet is 275. Sodium 135, pot assium 4.2, chloride 89, bicarbonate 43, BUN 22, creatinine 0.6, glucose 121, calcium is 8.6, AST 17, ALT 38, alkaline phosphatase is 89, albumin is 2.9. MICROBIOLOGY: Blood culture has been negative. IMPRESSION AND PLAN: Exacerbation of chronic obstructive lung disease. There is also a component of sinusitis, cardiomyopathy with decreased LV function, congestive heart failure, seizure disorder, ma y have ventilation syndrome. We will continue to encourage BiPAP while sleeping. Keep head el evated at 45 degrees, IV and inhaled bronchodilator, diuretics, gastric prophylaxis, deep venous thro mbosis prophylaxis. I spoke to patient's son at bedside. All their questions answered. The patient may benefit from TRCU type services. Will follow with you. Emeka Acuna MD cc: [id number] TT: 08/11/2016 17:39:50 Confirmation # [id number] Dictation # [id number] rn
[2016-08-12] MEDS: MethylPREDNISolone 40 mg Vial IVP SCH (06:10)
[2016-08-12 06:40] LABS: ADD MANUAL DIFF? NO
[2016-08-12 07:17] LABS: ALT/SGPT 39 U/L (7-56); BLOOD UREA NITROGEN 32 mg/dL (7-21); CHLORIDE 92 mmol/L (98-107); GFR AFRICAN-AMERICAN > 60; GLUCOSE,RANDOM 114 mg/dL (70-110); MAGNESIUM 2.2 mg/dL (1.7-2.2); POTASSIUM 4.5 mmol/L (3.6-5.0); SODIUM 137 mmol/L (132-148)
[2016-08-12 07:20] LABS: GRAN # 8.89 (1.4-6.5); HEMATOCRIT 53.9 % (36.0-48.0); LYMPH # 0.3 (1.2-3.4); LYMPH % 3.4 % (22.0-35.0); MEAN CELL VOLUME 92.5 fL (80.0-105.0); MEAN CORPUSCULAR HEMOGLOBIN 28.6 pg (25.0-35.0); MEAN PLATELET VOLUME 9.2 fl (7.0-11.0); MONO # 0.3 (0.1-0.6); MONO % 3.6 % (1.0-6.0); PLATELET COUNT 276 10^3/uL (120.0-450.0); RED CELL DISTRIBUTION WIDTH 17.7 % (11.5-14.5); WHITE BLOOD COUNT 9.6 10^3/ul (4.5-11.0)
[2016-08-12] MEDS: Budesonide 0.5 mg/2 ml Inhal Susp UD IH SCH (07:31)
[2016-08-12] MEDS: Albuterol-Ipratrop 3 mg / 0.5 (3 ml) UD IH PRN (07:31)
[2016-08-12] MEDS: Arformoterol 15 mcg/2 ml Inh Sol IH SCH (07:31)
[2016-08-12 07:41] LABS: ALKALINE PHOSPHATASE 80 U/L (38-133); AST/SGOT 21 U/L (15-39); BILIRUBIN,TOTAL 0.9 mg/dL (0.2-1.3); CALCIUM 8.7 mg/dL (8.4-10.5); PHOSPHOROUS 4.5 mg/dL (2.5-4.5)
[2016-08-12 07:53] LABS: CARBON DIOXIDE 42 mmol/L (21-33)
[2016-08-12 08:43] VITALS: RESP 22; TEMP 98.3
--- NOTE | 2016-08-12 09:22 | DS ---
SUBJECTIVE: The patient has no complaints of any chest pain, no shortness of breath, no headaches. She was admitted to the hospital after she was found to have lower extremity edema and she was having COPD symptoms with shortness of breath. She had lower extremity Dopplers done, which were negative. She has had improvement of her symptoms. Her lower extremity edema has improved. She is going to be discharged home to follow up as an outpatient. We will see if she qualifies for the transitional care unit. She has no dizziness, no nausea, no vomiting. PHYSICAL EXAMINATION: VITAL SIGNS: Temperature is 98.5, pulse of 90, blood pressure is 140/91, respirations 20, O2 saturat ion 92%. GENERAL: The patient comfortable, in no acute distress. HEENT: Anicteric sclerae. Moist mucosa. NECK: No JVD or adenopathy. CARDIAC: S1/S2. No murmurs. No rubs. Regular. RESPIRATORY: Clear to auscultation bilaterally. No wheezes, rales, or rhonchi. Good air entry. ABDOMEN: Bowel sounds are positive, soft, nontender, and nondistended. EXTREMITIES: No edema. Has 1+ pulses. ASSESSMENT: 1. Acute congestive heart failure, secondary to systolic dysfunction with an ejection fraction of 45 %-50%. 2. Acute chronic obstructive pulmonary disease, improved. 3. Tricuspid regurgitation. 4. Lower extremity edema, improved. 5. Polycythemia. 6. Nonobstructive coronary artery disease. 7. Anxiety. 8. Dyslipidemia. PLAN: The patient is currently comfortable, is receiving Ambien for sleep, is receiving arformoterol for chronic obstructive pulmonary disease. The patient is on doxycycline for antibiotics. The cj ent is going to continue with a nicotine patch for smoking, is on Solu-Medrol for her chronic obstruc tive pulmonary disease. The patient is on lisinopril for hypertension. The patient will get a TCU e valuation. If she qualifies, we will discharge the patient to TCU. CONDITION: Stable. ACTIVITY: Increase as tolerated. The patient was advised to stop smoking. Mariusz House MD cc: [id number] TT: 08/12/2016 09:22:11 en
[2016-08-12] MEDS: guaiFENesin DM 200 mg-20 mg/10 ml UD PO SCH ×3 (09:34→17:57)
[2016-08-12] MEDS ORDERED: MethylPREDNISolone 40 mg Vial IVP SCH (10:00)
[2016-08-12] MEDS: Hemorrohoidal Ointment (2 oz) TOP SCH ×2 (11:00→17:57)
[2016-08-12 16:08] VITALS: O2SAT 90
[2016-08-12 17:03] VITALS: BP 123/78; PULSE 87
--- NOTE | 2016-08-12 20:35 | PN ---
DATE: 08/12/2016 REFERRING PHYSICIAN: Dr. Mariusz House. SUBJECTIVE: She is out of bed to chair. Night was unremarkable. Tolerated BiPAP well. Still havin g cough, shortness of breath and wheezing, but overall feels better. No nausea, no vomiting or diarr hea. No leg pain or leg swelling. OBJECTIVE: GENERAL: No acute distress. VITAL SIGNS: Temperature is 98, heart rate is 87, respiratory rate is 20, blood pressure 123/78, pul se ox 90% on room air. HEENT: Moist mucous membranes. Crowded airway. Mallampati score is 4. NECK: Supple. No JVD. LUNGS: Have a prolonged expiratory phase with expiratory wheezing. HEART: S1, S2. ABDOMEN: Soft, nontender. No organomegaly. EXTREMITIES: There is no edema. NEUROLOGIC: Awake, alert, follows simple command. MEDICATIONS: Reviewed. No new change in medication reported. LABORATORY DATA: Shows hemoglobin 16.7, hematocrit 53.9, WBC 9.6, platelet is 276. Sodium 137, pota ssium 4.5, chloride 92, bicarb 40, BUN 32, creatinine 0.6, glucose 114, calcium is 8.7, phosphorus 4. 5, magnesium 2.2. AST 21, ALT 39, alk phos is 80, albumin is 3.0. MICROBIOLOGY: Blood cultures have been negative. IMPRESSION AND PLAN: Exacerbation of chronic obstructive lung disease, cardiomyopathy with decreased left ventricular function, congestive heart failure, seizure disorder, may have hypoventilation synd matthew. Will continue BiPAP while sleeping. Keep head elevated at 45 degrees. IV and inhaled broncho dilator. Gastric prophylaxis. Diuretics. The patient is urged to stop smoking. As outpatient, fabienne granger attended sleep study to rule out sleep apnea syndrome. Also, need PFT to assess the lung function . Thank you, and will follow with you. Emeka Acuna MD cc: [id number] TT: 08/12/2016 20:34:18 Confirmation # [id number] Dictation # [id number] mn
--- NOTE | 2016-08-12 21:33 | PN ---
DATE: 08/12/2016 REASON FOR CONSULTATION AND FOLLOWUP: Shortness of breath, possible acute exacerbation of COPD, stat us post cardiac catheterization, nonobstructive coronary artery disease, hypertension. HISTORY OF PRESENT ILLNESS: A 66-year-old female with past medical history significant for COPD, adm itted with acute exacerbation of COPD. The patient is now feeling better. Denies chest pain or palp itation. The patient previously had cardiac catheterization and found to have nonobstructive coronar y artery disease. Catheterization was done on 10/20/2015. The patient sitting in chair comfortably at present. PHYSICAL EXAMINATION: VITAL SIGNS: Blood pressure 123/78, respirations 22, pulse 89, temperature 98.3. HEAD: Normocephalic. EYES: Pupils normal. Conjunctivae normal. NOSE AND THROAT: Normal. NECK: JVP low. Carotid equal. THORAX: AP diameter normal. LUNGS: No significant rales. CARDIOVASCULAR: S1, S2. ABDOMEN: Soft, nontender, no organomegaly. Bowel sounds normal. EXTREMITIES: No clubbing, no cyanosis. LABORATORY DATA: WBC 9.6, hemoglobin 16.7, hematocrit 43.9, platelet 276. Sodium 137, potassium 4.5 , BUN 32, creatinine 0.6. Calcium, phosphorus, magnesium normal. AST, ALT normal. Total protein 6. 0, albumin 3.0. The patient had echo on 02/17/2016 that showed ejection fraction 45-50%, right ventr icle moderate to severely dilated, right ventricle function was reduced, right ventricle systolic pre ssure was 29 mmHg. IMPRESSION: Acute exacerbation of chronic obstructive pulmonary disease, status post fluid overload, dilated right ventricle right ventricle systolic function reduced, LV ejection fraction 45-50% . PLAN: I told patient to stop smoking and, in the meantime, we will continue present therapy and will follow with you. Emeka Ramires MD cc: [id number] TT: 08/12/2016 21:32:17 Confirmation # [id number] Dictation # [id number]
== END 2016-08-12 19:33 | DRG 190 ==
LOC: ED 21:19 → ERH 23:08 → 2RNO 08-08 00:11 → 5RSO 08-09 13:14
PROVIDERS: ADMIT Internal Medicine Nephrology; ATTEND Internal Medicine Nephrology
PROC: 5A09457 Assistance with Respiratory Ventilation, 24-96 Consecutive Hours, Continuous Positive Airway Pressure (ICD-10-PCS; principal; 2016-08-08)
DX: J44.1 Chronic obstructive pulmonary disease with (acute) exacerbation (principal); I50.21 Acute systolic (congestive) heart failure; J96.91 Respiratory failure, unspecified with hypoxia; E87.2 Acidosis; I42.9 Cardiomyopathy, unspecified; I27.2 Other secondary pulmonary hypertension; I11.0 Hypertensive heart disease with heart failure; D75.1 Secondary polycythemia; I07.1 Rheumatic tricuspid insufficiency; I25.10 Atherosclerotic heart disease of native coronary artery without angina pectoris; F41.9 Anxiety disorder, unspecified; E78.5 Hyperlipidemia, unspecified; G40.909 Epilepsy, unspecified, not intractable, without status epilepticus; F32.9 Major depressive disorder, single episode, unspecified; F17.210 Nicotine dependence, cigarettes, uncomplicated; G47.33 Obstructive sleep apnea (adult) (pediatric); K64.9 Unspecified hemorrhoids; G89.29 Other chronic pain; M54.9 Dorsalgia, unspecified; J32.9 Chronic sinusitis, unspecified; F51.02 Adjustment insomnia; I25.2 Old myocardial infarction